=== PATIENT | male | born 1945 | race Caucasian/White ===

== ENCOUNTER → 2016-07-01 | Outpatient (CLI) | payer MEDICARE | END | disposition home or self-care (01) | LOC: PCVCCLINIC 15:19 | PROVIDERS: ATTEND Internal Medicine Cardiovascular Disease | DX: I48.0 Paroxysmal atrial fibrillation (principal); I10 Essential (primary) hypertension; E78.00 Pure hypercholesterolemia, unspecified; I35.0 Nonrheumatic aortic (valve) stenosis | CPT/HCPCS: 93005; G0463 ==

== ENCOUNTER → 2016-12-30 | Outpatient (CLI) | payer MEDICARE ==
--- NOTE | 2016-12-30 14:53 | PCVCIMAG ---
APPROVED REPORT Study performed: 12/30/2016 13:47:54 EXAM: Comprehensive 2D, Doppler, and color-flow Echocardiogram Patient Location: Echo lab Status: routine BSA: 1.93 HR: 57 bpmBP: 138/70 mmHg Rhythm: Bradycardia Other Information Study Quality: Adequate Risk Factors: Cardiac Risk Factors: HTN Indications Paroxysmal A Fib, Aortic regurgitation 2D Dimensions LVEF(%): 56.08 (>50%) IVSd: 10.82 (7-11mm) LVDd: 47.28 mm PWd: 10.82 (7-11mm) LVDs: 33.45 (25-40mm) Left Atrium: 42.96 (27-40mm) Aortic Root: 34.47 mm LV Single Plane 4CH: 68.02 % LV Single Plane 2CH: 70.69 %Giraldo's LVEF: 69.36 % Biplane EF: 68.1 % Volumes Left Atrial Volume (Systole) Single Plane 4CH: 51.68 mLSingle Plane 2CH: 61.36 mL LA ESV Index: 30.00 mL/m2 Aortic Valve AoV Peak Louie.: 1.99 m/s AO Peak Gr.: 15.78 mmHgLVOT Max P.59 mmHg LVOT Mean P.91 mmHg LVOT Max V: 1.38 m/s LVOT Mean V: 0.94 m/s LVOT V1 VTI: 26.30 cm AI Vmax: 4.93 m/s AI Burnet: 2.64 m/s2 AI PHT: 545.20 ms Mitral Valve E/A Ratio: 0.8 MV Decel. Time: 211.02 ms MV E Max Louie.: 0.62 m/s MV A Louie.: 0.74 m/s IVRT: 110.73 ms Pulmonary Valve PV Peak Louie.: 0.89 m/sPV Peak Gr.: 3.14 mmHg Pulmonary Vein P Vein S: 0.45 m/sP Vein A: 0.33 m/s P Vein D: 0.60 m/sP Vein A Dur.: 134.9 msec P Vein S/D Ratio: 0.75 Tricuspid Valve TR Peak Louie.: 2.14 m/s TR Peak Gr.: 18.34 mmHg Left Ventricle The left ventricle is normal size. There is normal LV segmental wall motion. Borderline concentric left ventricular hypertrophy. Left ventricular systolic function is normal. The left ventricular ejection fraction is within the normal range. LVEF is 65%. Grade I - abnormal relaxation pattern. Right Ventricle The right ventricle is normal size. The right ventricular systolic function is normal. Atria The left atrium size is normal. The right atrium size is normal. Aortic Valve The aortic valve is mildly sclerotic without stenosis. Mild to moderate aortic regurgitation. There is no aortic valvular stenosis. Mitral Valve The mitral valve is normal in structure. Trace mitral regurgitation. No evidence of mitral valve stenosis. Tricuspid Valve The tricuspid valve is normal in structure. Mild tricuspid regurgitation with PAP of 25 mmHg. Pulmonic Valve The pulmonary valve is normal in structure. There is no pulmonic valvular regurgitation. Great Vessels The aortic root is normal in size. IVC is normal in size and collapses with >50% inspiration Pericardium There is no pericardial effusion. <Conclusion> The left ventricle is normal size. Left ventricular systolic function is normal. Grade I - abnormal relaxation pattern. The right ventricle is normal size. The left atrium size is normal. Mild to moderate aortic regurgitation. Trace mitral regurgitation. Mild tricuspid regurgitation with PAP of 25 mmHg.
== END | disposition home or self-care (01) ==
LOC: PCVCIMAG 13:31
PROVIDERS: ATTEND Internal Medicine Cardiovascular Disease
DX: I08.3 Combined rheumatic disorders of mitral, aortic and tricuspid valves (principal); I48.0 Paroxysmal atrial fibrillation; I10 Essential (primary) hypertension; K21.9 Gastro-esophageal reflux disease without esophagitis; I45.10 Unspecified right bundle-branch block; E78.00 Pure hypercholesterolemia, unspecified; Z88.8 Allergy status to other drugs, medicaments and biological substances; Z79.899 Other long term (current) drug therapy
CPT/HCPCS: 93306; G0463

== ENCOUNTER → 2017-08-04 | Outpatient (CLI) | payer MEDICARE | END | disposition home or self-care (01) | LOC: PCVCCLINIC 10:22 | DX: I48.91 Unspecified atrial fibrillation (principal); I10 Essential (primary) hypertension; K21.9 Gastro-esophageal reflux disease without esophagitis; E78.00 Pure hypercholesterolemia, unspecified; Z79.899 Other long term (current) drug therapy | CPT/HCPCS: 93005; G0463 ==

== ENCOUNTER → 2018-02-04 | Outpatient (CLI) | payer MEDICARE | END | disposition home or self-care (01) | LOC: PCVCCLINIC 12:00 | PROVIDERS: ATTEND Internal Medicine Cardiovascular Disease | DX: I48.0 Paroxysmal atrial fibrillation (principal); I10 Essential (primary) hypertension; E78.00 Pure hypercholesterolemia, unspecified; R60.9 Edema, unspecified; Z88.8 Allergy status to other drugs, medicaments and biological substances | CPT/HCPCS: 93005; G0463 ==

== ENCOUNTER → 2018-08-03 | Outpatient (CLI) | payer MEDICARE ==
--- NOTE | 2018-08-03 09:51 | PCVCIMAG ---
APPROVED REPORT Study performed: 08/03/2018 08:37:31 EXAM: Comprehensive 2D, Doppler, and color-flow Echocardiogram Patient Location: Echo lab Status: routine BSA: 1.94 HR: 59 bpmBP: 140/80 mmHg Rhythm: NSR Other Information Study Quality: Good Risk Factors: Cardiac Risk Factors: HTN, Hyperlipidemia Indications Paroxsysmal atrial fib., Edema 2D Dimensions IVSd: 10.15 (7-11mm)LVOT Diam: 21.09 (18-24mm) LVDd: 51.80 mm PWd: 8.13 (7-11mm)Ascending Ao: 37.06 (22-36mm) LVDs: 32.23 (25-40mm) Left Atrium: 37.69 (27-40mm) Aortic Root: 33.10 mm LV Single Plane 4CH: 50.82 % LV Single Plane 2CH: 62.87 % Biplane EF: 56.6 % Volumes Left Atrial Volume (Systole) Single Plane 4CH: 41.05 mLSingle Plane 2CH: 48.04 mL LA ESV Index: 24.00 mL/m2 Aortic Valve AoV Peak Louie.: 1.72 m/s AO Peak Gr.: 11.84 mmHgLVOT Max P.84 mmHg LVOT Max V: 0.98 m/s HAYLEE Vmax: 1.99 cm2 AI Vmax: 5.01 m/s AI Curry: 3.20 m/s2 AI PHT: 453.69 ms Mitral Valve E/A Ratio: 0.9 MV Decel. Time: 180.11 ms MV E Max Louie.: 0.70 m/s MV A Louie.: 0.80 m/s IVRT: 110.73 ms TDI E/Lateral E': 8.75E/Medial E': 8.75 Medial E' Louie.: 0.08 m/s Lateral E' Louie.: 0.08 m/s Pulmonary Valve PV Peak Gr.: 2.58 mmHg Pulmonary Vein P Vein S: 0.50 m/sP Vein A: 0.25 m/s P Vein D: 0.47 m/sP Vein A Dur.: 86.5 msec P Vein S/D Ratio: 1.06 Tricuspid Valve TR Peak Louie.: 2.35 m/s TR Peak Gr.: 22.07 mmHg Left Ventricle The left ventricle is normal size. There is normal LV segmental wall motion. There is normal left ventricular wall thickness. Left ventricular systolic function is normal. The left ventricular ejection fraction is within the normal range. LVEF is 60-65%. Right Ventricle The right ventricle is normal size. The right ventricular systolic function is normal. Atria The left atrium size is normal. The right atrium size is normal. Aortic Valve The aortic valve is normal in structure. Mild to moderate aortic regurgitation. There is no aortic valvular stenosis. Mitral Valve The mitral valve is normal in structure. Trace mitral regurgitation. No evidence of mitral valve stenosis. Tricuspid Valve The tricuspid valve is normal in structure. Trace tricuspid regurgitation. Pulmonary artery pressure is 29mmHg. Pulmonic Valve The pulmonary valve is normal in structure. Trace pulmonic regurgitation. Great Vessels The aortic root is normal in size. IVC is normal in size and collapses >50% with inspiration. Pericardium There is no pericardial effusion. <Conclusion> The left ventricle is normal size. There is normal left ventricular wall thickness. Left ventricular systolic function is normal. The right ventricle is normal size. The left atrium size is normal. Mild to moderate aortic regurgitation. Trace mitral regurgitation. Trace tricuspid regurgitation. Pulmonary artery pressure is 29mmHg.
== END | disposition home or self-care (01) ==
LOC: PCVCIMAG 09:02
PROVIDERS: ATTEND Internal Medicine Cardiovascular Disease
DX: I48.0 Paroxysmal atrial fibrillation (principal); R60.0 Localized edema; I35.1 Nonrheumatic aortic (valve) insufficiency; I10 Essential (primary) hypertension; E78.00 Pure hypercholesterolemia, unspecified; K21.9 Gastro-esophageal reflux disease without esophagitis
CPT/HCPCS: 93306

== ENCOUNTER → 2019-02-15 | Outpatient (CLI) | payer MEDICARE | END | disposition home or self-care (01) | LOC: PCVCCLINIC 09:40 | PROVIDERS: ATTEND Internal Medicine Cardiovascular Disease | DX: I45.10 Unspecified right bundle-branch block (principal); K21.9 Gastro-esophageal reflux disease without esophagitis; I10 Essential (primary) hypertension; G47.30 Sleep apnea, unspecified; Z98.52 Vasectomy status; Z72.89 Other problems related to lifestyle; Z88.8 Allergy status to other drugs, medicaments and biological substances; Z79.899 Other long term (current) drug therapy | CPT/HCPCS: 93005; G0463 ==